=== PATIENT | female | born 1985 | race Caucasian/White ===

== ENCOUNTER 2017-07-16 14:03 | Emergency (ER) | payer BC, OTHER ==
[2017-07-16] MEDS ORDERED: ASPIRIN 81 MG TABLET, CHEWABLE PO ONE (15:01)
[2017-07-16] MEDS ORDERED: ONDANSETRON 4 MG TAB.RAPDIS PO ONE (15:01)
--- NOTE | 2017-07-16 15:04 | ER Document Report ---
ED Medical Screen (RME) - General Chief Complaint: Chest Pain Stated Complaint: CHEST PRESSURE Time Seen by Provider: 07/16/17 14:54 Notes: RAPID MEDICAL EVALUATION DISCLOSURE I have seen this patient as part of a Rapid Medical Evaluation and, if applicable, placed any initially appropriate orders. The patient will be seen and fully evaluated, including a full history and physical exam, by a provider ( in Main ED or Fast Track) when a room becomes available. 32-year-old female here with complaints of midsternal nonradiating constant chest pain ongoing for the past few hours. It is associated with shortness of breath lightheadedness nausea vomiting. She has not noticed anything in particular that makes the pain better or worse. She was at the [employer] station where they checked her blood pressure and "it was skyhigh" at 150 systolic which she reports is abnormal. No extremity pain or swelling. She denies any prior history of cardiac disease or PE/DVT. EXAM Clear to auscultation bilaterally Regular rate and rhythm TRAVEL OUTSIDE OF THE [place] IN LAST 30 DAYS: No - Related Data Allergies/Adverse Reactions: cefaclor [From Ceclor] Allergy (Verified 07/16/17 14:08) magnesium sulfate Allergy (Verified 07/16/17 14:08) onion Allergy (Verified 07/16/17 14:08) Home Medications: synthroid. Past Medical History - Social History Chew tobacco use (# tins/day): No Frequency of alcohol use: None Drug Abuse: None Renal/ Medical History: Denies: Hx Peritoneal Dialysis Physical Exam - Vital signs Vitals: Temp Pulse Resp BP Pulse Ox 98.1 F 63 18 141/101 H 100 07/16/17 14:20 07/16/17 14:20 07/16/17 14:20 07/16/17 14:20 07/16/17 14:20 Course - Vital Signs Vital signs: Temp Pulse Resp BP Pulse Ox 98.1 F 63 18 141/101 H 100 07/16/17 14:20 07/16/17 14:20 07/16/17 14:20 07/16/17 14:20 07/16/17 14:20
[2017-07-16 15:49] LABS: ABSOLUTE BASOPHILS # (AUTO) 0.1 10^3/uL (0.0-0.2); ABSOLUTE LYMPHOCYTES (AUTO) 1.6 10^3/uL (0.5-4.7); ABSOLUTE MONOCYTES (AUTO) 0.6 10^3/uL (0.1-1.4); ABSOLUTE NEUT (AUTO) 9.1 10^3/uL (1.7-8.2); BASOPHILS % (AUTO) 0.8 % (0-2); EOSINOPHILS % (AUTO) 0.3 % (0-6); HEMATOCRIT 46.2 % (36.0-47.0); HEMOGLOBIN 15.4 g/dL (12.0-15.5); LYMPHOCYTES % (AUTO) 13.8 % (13-45); MEAN CORPUSCULAR HEMOGLOBIN 29.2 pg (27.0-33.4); MEAN CORPUSCULAR HGB CONC 33.4 g/dL (32.0-36.0); MEAN CORPUSCULAR VOLUME 88 fl (80-97); MONOCYTES % (AUTO) 5.3 % (3-13); PLATELET COUNT 339 10^3/uL (150-450); RED BLOOD COUNT 5.28 10^6/uL (3.72-5.28); RED CELL DISTRIBUTION WIDTH 13.5 % (11.5-14.0); SEGMENTED NEUTROPHILS % (AUTO) 79.8 % (42-78); TOTAL CELLS COUNTED % (AUTO) 100 %; WHITE BLOOD COUNT 11.4 10^3/uL (4.0-10.5)
--- NOTE | 2017-07-16 15:54 | EKG REPORT ---
SEVERITY:- ABNORMAL ECG - SINUS RHYTHM PROBABLE LEFT VENTRICULAR HYPERTROPHY : Confirmed by: Brown Gilliland MD 16-Jul-2017 15:53:26
--- NOTE | 2017-07-16 15:59 | RADIOLOGY REPORT (SQ) ---
EXAM DESCRIPTION: CHEST 2 VIEWS COMPLETED DATE/TIME: 07/16/2017 3:24 pm REASON FOR STUDY: CP SOB COMPARISON: None. EXAM PARAMETERS: NUMBER OF VIEWS: two views TECHNIQUE: Digital Frontal and Lateral radiographic views of the chest acquired. RADIATION DOSE: NA LIMITATIONS: none FINDINGS: LUNGS AND PLEURA: No opacities, masses or pneumothorax. No pleural effusion. MEDIASTINUM AND HILAR STRUCTURES: No masses or contour abnormalities. HEART AND VASCULAR STRUCTURES: Heart normal size. No evidence for failure. BONES: No acute findings. HARDWARE: None in the chest. OTHER: No other significant finding. IMPRESSION: NO ACUTE RADIOGRAPHIC FINDING IN THE CHEST. TECHNICAL DOCUMENTATION: JOB ID: [id number] [email or web address]- All Rights Reserved Reading location - IP/workstation name: [email or web address]
[2017-07-16 16:10] LABS: ANION GAP 15 (5-19); BLOOD UREA NITROGEN 10 mg/dL (7-20); CARBON DIOXIDE 29 mmol/L (22-30); CHLORIDE 104 mmol/L (98-107); GLUCOSE 97 mg/dL (75-110); POTASSIUM 4.5 mmol/L (3.6-5.0)
--- NOTE | 2017-07-16 17:57 | ER Document Report ---
ED General - General Chief Complaint: Chest Pain Stated Complaint: CHEST PRESSURE Time Seen by Provider: 07/16/17 14:54 Notes: Patient says that he feels as if something is squeezing her heart in the upper center of the chest, substernal area. This started about 11:30 AM today while patient was sitting and watching television. She was fine last night when she went to bed, slept well, and felt fine when she awakened this morning. She went to a local EMS then got her blood pressure taken it was 147/100 and they did an EKG and gave her a copy which shows a normal looking EKG except for the rate is somewhat irregular which looks like respiratory or physiologic variation in the sinus node activation. She went to an urgent care and her blood pressure was 153/106 and they advised her to come here. Patient says that she normally runs a low blood pressure at a slow heart rate, usually in the 40s. 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 Patient denies any swelling of either leg and is never had any problem with blood clots. Does not have any shortness of breath or difficulty breathing. No pains like sharp, pleuritic pains in the remaining areas of the chest and back. Patient says that she has spit up a couple of times about 1:30 PM, but not since she has been here. She was given an anti- emetic out front in triage., but not really vomiting and is not nauseated. Patient has never had any cardiac problems. Her only medication is thyroid. Asked patient if she felt particularly stressed and she says that she is " always stressed" but says that she does not feel any new or different problem in her life causing her more stress. TRAVEL OUTSIDE OF THE [place] IN LAST 30 DAYS: No - Related Data Allergies/Adverse Reactions: cefaclor [From [facility]] Allergy (Verified 07/16/17 14:08) magnesium sulfate Allergy (Verified 07/16/17 14:08) onion Allergy (Verified 07/16/17 14:08) Home Medications: synthroid. Past Medical History - Social History Smoking Status: Never Smoker Chew tobacco use (# tins/day): No Frequency of alcohol use: None Drug Abuse: None Family History: Reviewed & Not Pertinent Patient has suicidal ideation: No Patient has homicidal ideation: No - Past Medical History Cardiac Medical History: Denies: Hx Coronary Artery Disease, Hx Heart Attack Endocrine Medical History: Reports: Hx Hypothyroidism Review of Systems - Review of Systems Notes: REVIEW OF SYSTEMS: CONSTITUTIONAL : Denies fever. EENT: Denies eye, ear, nose or mouth or throat pain or other symptoms. CARDIOVASCULAR: See HPI. RESPIRATORY: Denies cough, chest congestion, or shortness of breath. GASTROINTESTINAL: Denies abdominal pain or nausea, vomiting, or diarrhea. GENITOURINARY: Denies difficulty or painful urinating, urinary frequency, blood in urine. MUSCULOSKELETAL: Denies back or neck pain. Denies joint pain or swelling. SKIN: Denies rash or skin lesions. NEUROLOGICAL: Denies LOC or altered mental status. Denies headache. Denies sensory loss or motor deficits. ALL OTHER SYSTEMS REVIEWED AND NEGATIVE. Physical Exam - Vital signs Vitals: Temp Pulse Resp BP Pulse Ox 98.1 F 63 18 141/101 H 100 07/16/17 14:20 07/16/17 14:20 07/16/17 14:20 07/16/17 14:20 07/16/17 14:20 Interpretation: Normal - Notes Notes: Vital signs show no tachycardia, hypoxia, tachypnea, etc. PHYSICAL EXAMINATION: GENERAL: Well-appearing, in no acute distress, but appears anxious.. HEAD: Atraumatic, normocephalic. EYES: Pupils equal round and reactive to light, extraocular movements intact. ENT: oropharynx clear without exudates. Moist mucous membranes. NECK: Normal range of motion, supple. LUNGS: Breath sounds clear and equal bilaterally. No chest wall or sternal discomfort to press. HEART: Regular rate and rhythm without murmurs. ABDOMEN: Soft, nontender. No guarding or rebound. No masses. BACK: No tenderness throughout entire back. EXTREMITIES: Normal range of motion without pain. Negative Homans bilaterally. NEUROLOGICAL: Normal speech, normal gait. Normal sensory, motor, and reflex exams. Awake, alert, and oriented x3. Cranial nerves normal. PSYCH: Normal mood, normal affect. SKIN: Warm, dry, no rashes. Course - Re-evaluation Re-evalutation: 07/16/17 19:31 Reviewed labs and EKG and chest x-ray results with patient. Very minimal elevation of white cell count. Explained the patient that I have worked her up as completely as I feel indicated at this time. She does not have signs or symptoms that make me concerned about a pulmonary embolus at this time. She has a relatively normal EKG with the exception that the rate is slightly irregular, probably a physiologic variant. Patient seems to be very anxious and nervous to me. - Vital Signs Vital signs: Temp Pulse Resp BP Pulse Ox 97.8 F 45 L 16 153/96 H 100 07/16/17 17:56 07/16/17 17:56 07/16/17 17:56 07/16/17 17:56 07/16/17 17:56 - Laboratory Result Diagrams: 07/16/17 15:12 07/16/17 15:12 Laboratory results interpreted by me: 07/16/17 07/16/17 15:12 15:12 WBC 11.4 H Seg Neutrophils % 79.8 H Absolute Neutrophils 9.1 H Sodium 148.0 H - Diagnostic Test Radiology results interpreted by me: 07/16/17 17:50 Chest x-ray is normal. - EKG Interpretation by Dc EKG shows normal: Sinus rhythm - Physiologic variability and the heart rate. Rate: Normal Rhythm: NSR Discharge - Discharge Clinical Impression: Chest pain, non-cardiac Condition: Stable Disposition: HOME, SELF-CARE Additional Instructions: CHEST PAIN OF UNCLEAR CAUSE: The exact cause of your chest pain isn't clear. Fortunately, there is no evidence of a dangerous medical condition. Further testing may be required to find the source of the pain. Most often, we find that this pain is coming from the chest wall -- the muscles or rib joints in the chest. But chest pain can come from the lung and lung lining, the esophagus, the heart valves or heart lining, and even the stomach or gallbladder. Rest. Eat lightly until the pain is gone. We may prescribe medicine for pain and inflammation. You should call the physician immediately if the pain radiates to the shoulder, jaw or arms; if you start to run a fever or develop a cough; or if you develop shortness of breath, or other new or alarming symptoms. NORMAL EXAM AND WORKUP: At this time, your examination and workup show no significant abnormality. No significant abnormal physical findings were noted. All laboratory, EKG, and imaging (x-ray, CT scans, ultrasound) studies that were ordered show no significant abnormality. Although your examination and all studies that were ordered showed no significant abnormal finding, there are no examinations and no studies that are 100% accurate. There is always the possibility that some abnormality could exist and not be detected with physical examination or within the limits and capabilities of laboratory and other studies. You should return or follow up as you were instructed on your visit today for further evaluation if your symptoms do not resolve. Your white cell count was very minimally elevated and could represent the beginning of a viral infection that could come on in the next couple of days. If you are not better Tuesday, return for us to reevaluate you further. If you are better Tuesday you may resume normal activities. FOLLOW-UP CARE: If you have been referred to a physician for follow-up care, call the physician s office for an appointment as you were instructed or within the next two days. If you experience worsening or a significant change in your symptoms, notify the physician immediately or return to the Emergency Department at any time for re-evaluation.
[2017-07-16 17:59] VITALS: BP 153/96
== END 2017-07-16 18:15 | disposition home or self-care (01) ==
LOC: ER 14:03
DX: R07.89 Other chest pain (principal); D72.829 Elevated white blood cell count, unspecified; R06.02 Shortness of breath; R42 Dizziness and giddiness; R11.2 Nausea with vomiting, unspecified; Z73.3 Stress, not elsewhere classified; E03.9 Hypothyroidism, unspecified; Z79.899 Other long term (current) drug therapy
CPT/HCPCS: 93005; 99285; 36415; 85025; 80048; 84484; 71046; 93010; S0119

== ENCOUNTER 2019-09-12 15:45 | Emergency (ER) | payer OTHER ==
[2019-09-12] MEDS ORDERED: METHYLPREDNISOLONE INJ 125 MG/2 ML SDV IV ONE (16:44)
[2019-09-12] MEDS ORDERED: NORMAL SALINE 1000 ML 1,000 ML IV ONE (16:44)
[2019-09-12] MEDS ORDERED: DIPHENHYDRAMINE HCL 50 MG/ML VIAL IV ONE (16:44)
[2019-09-12] MEDS ORDERED: FAMOTIDINE INJ/PF 20 MG/2 ML SDV IV ONE (16:44)
--- NOTE | 2019-09-12 16:47 | ER Document Report ---
ED Medical Screen (RME) - General Chief Complaint: Chest Pain Stated Complaint: MIGRAINE Time Seen by Provider: 09/12/19 16:35 Mode of Arrival: Medic Information source: Patient Notes: Patient presents complaining of migraine headache for the past 4 days. Patient took a new medication Fioricet with codeine around 130 and about 20 minutes later developed chest pain, rib pain and itching with nausea. Patient complains of her lips feeling funny although denies any swelling to the airway. Patient states that her normal baseline heart rate is in the 40s and for her heart rate to be in the 80s right now is extremely fast for her. Patient states headache feels typical of migraines that she has had in the past. I have greeted and performed a rapid initial assessment of this patient. A comprehensive ED assessment and evaluation of the patient, analysis of test results and completion of the medical decision making process will be conducted by additional ED providers. TRAVEL OUTSIDE OF THE [place] IN LAST 30 DAYS: No - Related Data Allergies/Adverse Reactions: cefaclor [From Ceclor] Allergy (Verified 07/16/17 14:08) ciprofloxacin [From Cipro] Allergy (Verified 09/12/19 16:42) magnesium sulfate Allergy (Verified 07/16/17 14:08) onion Allergy (Verified 07/16/17 14:08) [id number] Antimigraine Agents Allergy (Verified 09/12/19 16:42) Past Medical History - Social History Frequency of alcohol use: None Drug Abuse: None - Past Medical History Cardiac Medical History: Denies: Hx Coronary Artery Disease, Hx Heart Attack Endocrine Medical History: Reports: Hx Hypothyroidism Renal/ Medical History: Denies: Hx Peritoneal Dialysis Physical Exam - Vital signs Vitals: Temp Pulse Resp BP Pulse Ox 98.2 F 83 20 139/92 H 99 09/12/19 15:52 09/12/19 15:52 09/12/19 15:52 09/12/19 15:52 09/12/19 15:52 - General General appearance: Alert In distress: None Notes: Breath sounds clear bilaterally, lateral rib tenderness, anterior chest tende rness, no angioedema Course - Vital Signs Vital signs: Temp Pulse Resp BP Pulse Ox 98.2 F 83 20 139/92 H 99 09/12/19 15:52 09/12/19 15:52 09/12/19 15:52 09/12/19 15:52 09/12/19 15:52
[2019-09-12 17:31] LABS: ABSOLUTE LYMPHOCYTES (AUTO) 1.4 10^3/uL (0.5-4.7); ABSOLUTE MONOCYTES (AUTO) 0.8 10^3/uL (0.1-1.4); ABSOLUTE NEUT (AUTO) 10.5 10^3/uL (1.7-8.2); BASOPHILS % (AUTO) 0.3 % (0-2); EOSINOPHILS % (AUTO) 0.3 % (0-6); HEMATOCRIT 46.3 % (36.0-47.0); HEMOGLOBIN 15.6 g/dL (12.0-15.5); MEAN CORPUSCULAR HEMOGLOBIN 29.8 pg (27.0-33.4); MEAN CORPUSCULAR HGB CONC 33.7 g/dL (32.0-36.0); MEAN CORPUSCULAR VOLUME 88 fl (80-97); MONOCYTES % (AUTO) 6.5 % (3-13); PLATELET COUNT 278 10^3/uL (150-450); RED BLOOD COUNT 5.24 10^6/uL (3.72-5.28); RED CELL DISTRIBUTION WIDTH 12.3 % (11.5-14.0); SEGMENTED NEUTROPHILS % (AUTO) 81.9 % (42-78); TOTAL CELLS COUNTED % (AUTO) 100 %; WHITE BLOOD COUNT 12.8 10^3/uL (4.0-10.5)
--- NOTE | 2019-09-12 17:38 | RADIOLOGY REPORT (SQ) ---
EXAM DESCRIPTION: CHEST SINGLE VIEW IMAGES COMPLETED DATE/TIME: 09/12/2019 5:30 pm REASON FOR STUDY: cp, rib pain COMPARISON: Two-view chest 07/16/2017 EXAM PARAMETERS: NUMBER OF VIEWS: One view. TECHNIQUE: Single frontal radiographic view of the chest acquired. RADIATION DOSE: NA LIMITATIONS: None. FINDINGS: LUNGS AND PLEURA: No opacities, masses or pneumothorax. No pleural effusion. MEDIASTINUM AND HILAR STRUCTURES: No masses. Contour normal. HEART AND VASCULAR STRUCTURES: Heart normal in size. Normal vasculature. BONES: No acute findings. HARDWARE: None in the chest. OTHER: No other significant finding. IMPRESSION: NO ACUTE RADIOGRAPHIC FINDING IN THE CHEST. TECHNICAL DOCUMENTATION: JOB ID: [id number] [employer]- All Rights Reserved Reading location - IP/workstation name: [email or web address]
[2019-09-12 17:51] LABS: ALKALINE PHOSPHATASE 87 U/L (38-126); ANION GAP 7 (5-19); ASPARTATE AMINO TRANSFERASE 87 U/L (14-36); BILIRUBIN,DIRECT 0.1 mg/dL (0.0-0.4); BILIRUBIN,TOTAL 1.2 mg/dL (0.2-1.3); BLOOD UREA NITROGEN 10 mg/dL (7-20); CALCIUM 9.6 mg/dL (8.4-10.2); CARBON DIOXIDE 26 mmol/L (22-30); CHLORIDE 105 mmol/L (98-107); GLUCOSE 100 mg/dL (75-110); TOTAL PROTEIN 8.3 g/dL (6.3-8.2)
[2019-09-12] MEDS ORDERED: ONDANSETRON HCL INJ/PF 4 MG/2 ML SDV IV ONE (18:50)
[2019-09-12] MEDS ORDERED: METOCLOPRAMIDE HCL INJ/PF 10 MG/2 ML SDV IV ONE (18:50)
--- NOTE | 2019-09-12 19:23 | ER Document Report ---
ED General - General Chief Complaint: Chest Pain Stated Complaint: MIGRAINE Time Seen by Provider: 09/12/19 16:35 Mode of Arrival: Medic TRAVEL OUTSIDE OF THE [place] IN LAST 30 DAYS: No - HPI Notes: Patient is a 34-year-old female who presents to the emergency department for evaluation. She has a history of migraines. She had run out of her Fioricet. Her primary care provider wrote her a prescription, it turned out to have codeine in it. She took it today for her migraines without any food on her stomach. She developed chest pain. She developed nausea. She developed vo miting. She developed itching all over, and a numb and tingling sensation on her lips. She also states her heart rate felt faster than normal. She had never had codeine in the past. She states her migraine is right-sided. Is typical of her normal migraine headaches. - Related Data Allergies/Adverse Reactions: cefaclor [From Ceclor] Allergy (Verified 09/12/19 19:00) ciprofloxacin [From Cipro] Allergy (Verified 09/12/19 19:00) magnesium sulfate Allergy (Verified 09/12/19 19:00) onabotulinumtoxinA [From Botox] Allergy (Verified 09/12/19 19:00) onion Allergy (Verified 09/12/19 19:00) [id number]-3-OL1 Antimigraine Agents Allergy (Verified 09/12/19 19:00) Past Medical History - General Information source: Patient - Social History Smoking Status: Never Smoker Frequency of alcohol use: None Drug Abuse: None Family History: Reviewed & Not Pertinent, CAD, Malignancy, Thyroid Disfunction - Past Medical History Cardiac Medical History: Denies: Hx Coronary Artery Disease, Hx Heart Attack Neurological Medical History: Reports: Hx Migraine Endocrine Medical History: Reports: Hx Hypothyroidism Renal/ Medical History: Denies: Hx Peritoneal Dialysis Past Surgical History: Reports: Hx Cholecystectomy Review of Systems - Review of Systems Constitutional: See HPI Cardiovascular: See HPI Gastrointestinal: See HPI Skin: See HPI Neurological/Psychological: See HPI -: Yes All other systems reviewed and negative Physical Exam - Vital signs Vitals: Temp Pulse Resp BP Pulse Ox 98.2 F 83 20 139/92 H 99 09/12/19 15:52 09/12/19 15:52 09/12/19 15:52 09/12/19 15:52 09/12/19 15:52 - Notes Notes: Vital signs reviewed, please refer to chart. Head is normocephalic, atraumatic. Pupils equal round, reactive to light. Neck is supple without meningismus. Heart is regular rate and rhythm. Lungs are clear to auscultation bilaterally. Abdomen is soft, nontender, normoactive bowel sounds throughout. Extremities without cyanosis, clubbing. Posterior calves are nontender. Peripheral pulses are equal. Skin is warm and dry. Patient is awake, alert, oriented x3. Cranial nerves II - XII are grossly intact without focal neurological deficits. Strength is plus 5 out of 5 bilateral upper and lower extremities. Sensation is intact. Reflexes symmetrical. Intact [id number], rapid alternating movements, [id number]. Course - Re-evaluation Re-evalutation: 09/12/19 19:25 Patient presents to the emergency department for evaluation. She had laboratory investigations and imaging as ordered through triage. Laboratory investigations are unremarkable. Patient to me seems as if she has had a migraine and adverse reaction to codeine. She was actively vomiting when I first went to see her. I treated her migraine and nausea with Reglan and Zofran. She is entirely improved, states her migraine is resolved. All of her symptoms have resolved as well. I told her that she should avoid codeine in the future, return to the ED with worsening. She is amenable to this plan. She should follow-up with primary care, return to the ED with worsening or new concerning symptoms of any sort. - Vital Signs Vital signs: Temp Pulse Resp BP Pulse Ox 98.5 F 83 16 125/65 98 09/12/19 19:10 09/12/19 15:52 09/12/19 19:09 09/12/19 19:09 09/12/19 19:09 - Laboratory Result Diagrams: 09/12/19 17:11 09/12/19 17:11 Laboratory results interpreted by me: 09/12/19 09/12/19 17:11 17:11 WBC 12.8 H Hgb 15.6 H Lymph % (Auto) 11.0 L Absolute Neuts (auto) 10.5 H Seg Neutrophils % 81.9 H AST 87 H Total Protein 8.3 H - Diagnostic Test Radiology reviewed: Reports reviewed Radiology results interpreted by me: 09/12/19 19:26 Chest X-Ray 09/12/19 16:43 IMPRESSION: NO ACUTE RADIOGRAPHIC FINDING IN THE CHEST. - EKG Interpretation by Me Additional EKG results interpreted by me: 09/12/19 19:26 Sinus mechanism with rate of 73 bpm. Normal axis intervals. No acute ST changes concerning for ischemia or infarction. Discharge - Discharge Clinical Impression: Migraine Qualifiers: Migraine type: unspecified Status migrainosus presence: without status migrainosus Intractability: not intractable Qualified Code(s): G43.909 - Migraine, unspecified, not intractable, without status migrainosus Adverse reaction to codeine Qualifiers: Encounter type: initial encounter Qualified Code(s): T40.2X5A - Adverse effect of other opioids, initial encounter Condition: Stable Disposition: HOME, SELF-CARE Instructions: Migraine Headache ([facility]) Additional Instructions: Rest. Stay well-hydrated. I would avoid codeine in the future. Follow-up with your primary care provider this week. Return to the emergency department with worsening or new concerning symptoms of any sort.
[2019-09-12 19:51] VITALS: BP 119/63
--- NOTE | 2019-09-12 20:41 | EKG REPORT ---
SEVERITY:- ABNORMAL ECG - SINUS RHYTHM NONSPECIFIC ST-T CHANGES- INFERIOR LEADS : Confirmed by: Brown Gilliland MD 12-Sep-2019 20:41:15
== END 2019-09-12 19:51 | disposition home or self-care (01) ==
LOC: ER 15:45
DX: G43.909 Migraine, unspecified, not intractable, without status migrainosus (principal); T40.2X5A Adverse effect of other opioids, initial encounter; R07.9 Chest pain, unspecified; Z88.3 Allergy status to other anti-infective agents
CPT/HCPCS: 93005; 99284; 96361; 96374; 96375; 36415; 83690; 85025; 80053; 84484; 71045; 93010; J1200; J2930; J2765; J2405; J7030; S0028